=== PATIENT | female | born 1970 | race Caucasian/White ===

== ENCOUNTER 2017-03-23 05:32 | Day surgery (SDC) | payer OTHER ==
[~2017-03-23 05:32] MED LIST: ALLEGRA ALLERG180 MG PO; ASPIRIN325 MG PO; CYANOCOBALAM1000 MCG PO; NEXIUM40 MG PO; NIFEDICAL XL60 MG PO; REVATIO20 MG PO; SINGULAIR10 MG PO; VITAMIN D2000 UNIT PO; ZANTAC300 MG PO; ZYRTEC10 M2 PO
[2017-03-23 06:27] VITALS: BP 128/60
[2017-03-23] MEDS ORDERED: NORCO 5/3251 TABLET PO (09:14)
[2017-03-23 09:20] LABS: INTERNAL CONTROL VALID? YES
[2017-03-23 10:24] VITALS: BP 90/64
[2017-03-23 11:00] VITALS: BP 109/69
== END 2017-03-23 11:15 | disposition home or self-care (01) ==
LOC: SDC 05:32
PROVIDERS: Surgery
DX: K80.10 Calculus of gallbladder with chronic cholecystitis without obstruction (principal); J45.909 Unspecified asthma, uncomplicated; E11.9 Type 2 diabetes mellitus without complications; F17.210 Nicotine dependence, cigarettes, uncomplicated; Z79.82 Long term (current) use of aspirin
CPT/HCPCS: 74300; 84703; 88304; 93005; J0330; J1100; J1170; J1885; J2250; J2405; J2710; J2765; J3010; S0020